=== PATIENT | male | born 1995 | race Hispanic/Latino ===

== ENCOUNTER 2019-12-06 10:02 | Emergency (ER) | payer BC, SELFPAY ==
--- NOTE | ~2019-12-06 | XR_ITS ---
EXAMINATION: XR lumbar spine 2-3V DATE: 12/06/2019 10:42 INDICATION: Low back injury. Low back pain. TECHNIQUE: 3 views of lumbar spine were obtained. COMPARISON: None. FINDINGS: Bone alignment is normal. Vertebral body heights and intervertebral disc heights are normal . The facet joints are unremarkable. IMPRESSION: 1. Normal lumbar spine. Reviewed, dictated and finalized at location A. IMPRESSION: 1. Normal lumbar spine.
[2019-12-06 10:12] VITALS: BP 138/80; PULSE 90; RESP 14; TEMP 36.6; O2SAT 99
--- NOTE | 2019-12-06 10:24 | ED.BACK ---
HPI - Back Pain/Injury General Chief Complaint: Back Pain/Injury Stated Complaint: back pain Time Seen by Provider: 12/06/19 10:25 Source: patient History of Present Illness HPI Narrative: Patient presents with low back pain. Patient states he was practicing martial arts in his living room 2 days ago and felt a sharp pop in his lower back. Patient states he has had pain with movement since then. Patient reports he is taking Tylenol for pain with minimal relief. Patient denies any numbness or tingling's, denies any bowel or bladder problems. Patient denies any fever any cough denies any exposure to coronavirus. Patient states he is a normally healthy individual. MD elicited complaint: back pain Pertinent past history: prior back pain Related Data Allergies Allergy/AdvReac Type Severity Reaction Status Date / Time No Known Allergies Allergy Verified 12/06/19 10:21 Review of Systems Review of Systems: Narrative: CONSTITUTIONAL: Denies fever, chills, or sweats. EYES: Denies visual changes, redness, or discharge. ENT: Denies rhinorrhea, congestion, sore throat, or otalgia. CARDIOVASCULAR: Denies chest pain, palpitations, or edema. RESPIRATORY: Denies cough or dyspnea. GASTROINTESTINAL: Denies abdominal pain, nausea, vomiting, or diarrhea. GENITOURINARY: Denies dysuria or hematuria. SKIN: Denies rash or itching. MUSCULOSKELETAL: Denies joint pain, or myalgia. Reports low back pain NEUROLOGIC: Denies headache, numbness, or weakness. PSYCHIATRIC: Denies anxiety or depression. All systems reviewed & are unremarkable except as noted in HPI and below PMFSH Comments At time of signature, agree with nursing past medical, surgical, social and family history. There is no relevant family history pertinent to the presenting complaint Exam Narrative: Exam Narrative: GENERAL: Well-appearing, well-nourished, and in no acute distress. HEAD: Normocephalic, atraumatic. EYES: PERRLA and EOMI. ENT: Nares clear, no rhinorrhea or epistaxis. Mucous membranes moist. NECK: Supple. CHEST: Clear to auscultation. No respiratory distress. HEART: Regular rate and rhythm. No murmur heard. Normal peripheral pulses. ABDOMEN: Soft, nontender, nondistended, normal active bowel sounds. EXTREMITIES: Normal range of motion. No edema. SKIN: Warm, dry, no rash. SPINE MIDLINE. NO CURVATURE APPARENT. NO NOVERTEBRAL POINT SPECIFIC TENDERNESS. NO DEFORMITY. NO STEP-OFFS. NORMAL LE STRENGTH BILATERALLY. NORMAL LE SENSATION BILATERALLY. ABLE TO WALK ON TOES AND HEELS WITH NORMAL DORSIFLEXION AND PLANTAR FLEXION STRENGTH. NO WEAKNESS OBSERVED WITH GAIT. RIGHT PARASPINAL MUSCLE TENDERNESS. RIGHT SI JOINT TENDERNESS. FLEXION AND EXTENSION ROM NORMAL, ONLY SLIGHT LIMITATION. NEURO: No focal deficits. Alert and oriented x3. Gabe Coma Scale Eye Opening: Spontaneous 4 Gabe Coma Scale Motor: Obeys Commands 6 Arrey Coma Scale Verbal: Oriented 5 Gabe Coma Scale Total 15 Course Vital Signs Vital signs: Vital Signs Temperature 36.6 C 12/06/19 10:12 Pulse Rate 90 12/06/19 10:12 Respiratory Rate 14 12/06/19 10:12 Blood Pressure 138/80 12/06/19 10:12 Pulse Oximetry 99 12/06/19 10:12 Temperature 36.6 C 12/06/19 10:12 Pulse Rate 90 12/06/19 10:12 Respiratory Rate 14 12/06/19 10:12 Blood Pressure 138/80 12/06/19 10:12 Pulse Oximetry 99 12/06/19 10:12 Addressed elevated BP today. Today's blood pressure higher than recommended range. Discussed importance of follow -up with PCP and possible terminal make up operator effects/cardiovascular events related to HTN. Currently patient denies headache, dizziness, vision changes, CP or shortness of breath. DISCUSSED WITH PATIENT, X-RAY FINDINGS AND THAT X-RAYS WERE NEGATIVE FOR FRACTURE OR DISLOCATIONS. X-RAYS CANNOT RULE OUT TENDON, LIGAMENT, OR SOFT TISSUE STRUCTURE INJURIES AND IF SYMPTOMS PERSIST OR WORSEN, FURTHER EVALUATION MAY BE WARRANTED FOR POTENTIAL IMAGING. ADVISED REST, ICE, COMPRESSION, AND SHANNON
[2019-12-06] MEDS: KETOROLAC (*BKC) 60 MG/2 ML VIAL IM (10:40)
== END 2019-12-06 11:05 | disposition home or self-care (01) ==
PROVIDERS: Emergency Provider Nurse Practitioner Family
DX: S39.012A Strain of muscle, fascia and tendon of lower back, initial encounter (principal); X50.9XXA Other and unspecified overexertion or strenuous movements or postures, initial encounter; Y93.75 Activity, martial arts
CPT/HCPCS: 72100; 96372; 99213; G0463; J1885